=== PATIENT | male | born 1940 | race Caucasian/White ===

== ENCOUNTER → 2017-02-28 | Outpatient (CLI) | payer MEDICARE, BC | END | disposition home or self-care (01) | LOC: PCVCIMAG 09:18 | PROVIDERS: ATTEND Internal Medicine Cardiovascular Disease | DX: I65.23 Occlusion and stenosis of bilateral carotid arteries (principal); I25.10 Atherosclerotic heart disease of native coronary artery without angina pectoris; I45.10 Unspecified right bundle-branch block; R55 Syncope and collapse; E78.5 Hyperlipidemia, unspecified; I10 Essential (primary) hypertension; Z95.1 Presence of aortocoronary bypass graft | CPT/HCPCS: 80061; 93005; 93306; 93880; G0463 ==

== ENCOUNTER → 2017-08-26 | Outpatient (CLI) | payer MEDICARE, BC | END | disposition home or self-care (01) | LOC: PCVCCLINIC 12:00 | PROVIDERS: ATTEND Internal Medicine Cardiovascular Disease | DX: I25.10 Atherosclerotic heart disease of native coronary artery without angina pectoris (principal); I10 Essential (primary) hypertension; I65.29 Occlusion and stenosis of unspecified carotid artery; E11.42 Type 2 diabetes mellitus with diabetic polyneuropathy; E78.00 Pure hypercholesterolemia, unspecified; R94.31 Abnormal electrocardiogram [ECG] [EKG]; I45.10 Unspecified right bundle-branch block; I44.0 Atrioventricular block, first degree; Z95.1 Presence of aortocoronary bypass graft; Z87.891 Personal history of nicotine dependence; Z79.899 Other long term (current) drug therapy; Z79.84 Long term (current) use of oral hypoglycemic drugs | CPT/HCPCS: 80061; 93005; G0463 ==

== ENCOUNTER → 2018-03-04 | Outpatient (CLI) | payer MEDICARE, BC | END | disposition home or self-care (01) | LOC: PCVCIMAG 16:00 | DX: I08.3 Combined rheumatic disorders of mitral, aortic and tricuspid valves (principal); I25.10 Atherosclerotic heart disease of native coronary artery without angina pectoris; I45.2 Bifascicular block; M48.061 Spinal stenosis, lumbar region without neurogenic claudication; E11.42 Type 2 diabetes mellitus with diabetic polyneuropathy; I10 Essential (primary) hypertension; E78.00 Pure hypercholesterolemia, unspecified; R53.83 Other fatigue; R94.31 Abnormal electrocardiogram [ECG] [EKG]; R06.00 Dyspnea, unspecified; Z95.1 Presence of aortocoronary bypass graft; Z87.891 Personal history of nicotine dependence | CPT/HCPCS: 80061; 93005; 93306; G0463 ==

== ENCOUNTER → 2018-09-08 | Outpatient (CLI) | payer MEDICARE, BC ==
[~2018-09-08] MED LIST: REGADENOSON 0.4 MG/5 ML DISP.SYRIN. IV ONE
--- NOTE | 2018-09-08 13:49 | PCVCIMAG ---
APPROVED REPORT Imaging Protocol: Rest Tc-99m/Stress Tc-99m 1 day Study performed: 09/08/2018 10:18:07 Indication: Dyspnea, CAD, RBBB, Fatigue, Cardiomyopathy Patient Location: Out-Patient Stress Nurse: Oly Christian RN CO Tech:Porfirio FigueroaKARRIE Ht: 6 ft 0 in Wt: 260 lbs BSA: 2.38 m2 HR: 64 bpm BP: 132/60 mmHg BMI: 35.2 Rhythm: Sinus Rhythm, Bifascicular Block Medical History Medical History: Age, Hyperlipidemia, HTN, CAD, DM, Former Smoker Medications: ASA, Proscar, Gabapentin, Glipizide, Lisinopril, Metoprolol, Omeprazole, Actos, Crestor Allergies: No known drug allergies Cardiac Risk Factors: CABG Exercise History: Sedentary Physical Disabilities: Knees, Hips Meds Held (24 hrs): Metoprolol Resting Data Rest SPECT myocardial perfusion imaging was performed in supine position 45 minutes following the intravenous injection of 10.8 mCi of Tc-99m Sestamibi. Time of rest injection: 1000 Date: 09/08/2018 Administration Route: IV Administration Site: Right AC Pharmacologic Stress Pharmacologic stress test was performed by injecting Regadenoson 0.4 mg IV push over 10-15 seconds immediately followed by the intravenous injection of 33.8 mCi of Tc-99m Sestamibi. Time of stress injection: 1115 Date: 09/08/2018 Administration Route: IV Administration Site: Right AC Gated Stress SPECT was performed 45 minutes after stress injection. The images were gated to evaluate regional wall motion and calculate left ventricular ejection fraction. Comments Prior Study 09/2016 Negative for ischemia Stress Test Details Stress Test: Pharmacologic stress testing performed using 0.4 mg of regadenoson per 5 mL given IV over 10 seconds. Reason for pharmacologic stress test: Hips, Knee issues. HRMax Heart Rate (APMHR): 142 bpm Resting HR: 64 bpmTarget HR (85% APMHR): 120 bpm Max HR Achieved: 70 bpm % of APMHR: 49 Recovery HR: 63 bpm BP Resting BP: 132/60 mmHg Recovery BP: 136/64 mmHg ECG Resting ECG: Sinus Rhythm, Bifascicular Block Stress ECG: Sinus Rhythm, Bifascicular Block Arrhythmia: None Recovery ECG: Sinus Rhythm, Bifascicular Block Clinical Reason for Termination: Completed protocol Stress Symptoms: None Exercise duration: min 55 sec Symptoms resolved during recovery. Stress ECG Conclusion ECG: Non-ischemic Clinical: Non-ischemic Study Quality Study: Good Artifact: Mild Diaphragmatic artifact Study Data Post stress, the left ventricular ejection was 61%.. SSS: 3 SRS: 5 SDS: 1 TID = 1.11. Perfusion No evidence of stress induced ischemia or prior myocardial infarction. Wall Motion Normal left ventricular function with no regional wall motion abnormalities. Nuclear Conclusion No evidence of stress induced ischemia or prior myocardial infarction. Normal left ventricular function with no regional wall motion abnormalities. Post stress, the left ventricular ejection was 61%. No change since prior study dated September 2016. Interpreted by: Jose Antonio Tenorio MD Electronically Approved: 09/08/2018 12:54:09 <Conclusion> ECG: Non-ischemic Clinical: Non-ischemic
== END | disposition home or self-care (01) ==
LOC: PCVCIMAG 09:25
PROVIDERS: ATTEND Internal Medicine Cardiovascular Disease
DX: I25.10 Atherosclerotic heart disease of native coronary artery without angina pectoris (principal); I45.2 Bifascicular block; I10 Essential (primary) hypertension; E78.00 Pure hypercholesterolemia, unspecified; I65.23 Occlusion and stenosis of bilateral carotid arteries; E11.42 Type 2 diabetes mellitus with diabetic polyneuropathy; I42.9 Cardiomyopathy, unspecified; R06.02 Shortness of breath; I45.10 Unspecified right bundle-branch block; R53.83 Other fatigue; E78.5 Hyperlipidemia, unspecified; Z95.1 Presence of aortocoronary bypass graft; Z87.891 Personal history of nicotine dependence; Z79.899 Other long term (current) drug therapy
CPT/HCPCS: 78452; 93005; 93017; A9500; G0463; J2785

== ENCOUNTER → 2019-03-18 | Outpatient (CLI) | payer MEDICARE, BC ==
--- NOTE | 2019-03-18 16:58 | PCVCIMAG ---
APPROVED REPORT Study performed: 03/18/2019 14:25:24 EXAM: Comprehensive 2D, Doppler, and color-flow Echocardiogram Patient Location: Echo lab Status: routine BSA: 2.42 HR: 62 bpmBP: 144/72 mmHg Rhythm: NSR, RBBB Other Information Study Quality: Technically Difficult Technically limited study due to body habitus. Risk Factors: Cardiac Risk Factors: HTN, Hyperlipidemia Indications CAD Cardiomyopathy S/P CABG (2003) Dyspnea on Exertion 2D Dimensions IVSd: 13.15 (7-11mm)LVOT Diam: 21.00 (18-24mm) LVDd: 50.08 mm PWd: 12.58 (7-11mm)Ascending Ao: 34.95 (22-36mm) LVDs: 37.91 (25-40mm) Left Atrium: 53.97 (27-40mm) Aortic Root: 36.49 mm LV Single Plane 4CH: 45.86 % LV Single Plane 2CH: 52.41 % Biplane EF: 49.9 % Volumes Left Atrial Volume (Systole) Single Plane 4CH: 91.65 mLSingle Plane 2CH: 77.26 mL LA ESV Index: 35.00 mL/m2 Aortic Valve AoV Peak Ian.: 1.51 m/s AO Peak Gr.: 9.08 mmHgLVOT Max P.89 mmHg LVOT Max V: 0.85 m/s DAVID Vmax: 1.92 cm2 Mitral Valve E/A Ratio: 0.7 MV Decel. Time: 218.24 ms MV E Max Ian.: 0.72 m/s MV A Ian.: 0.99 m/s IVRT: 65.74 ms TDI E/Lateral E': 8.00E/Medial E': 10.29 Medial E' Ian.: 0.07 m/s Lateral E' Ian.: 0.09 m/s Pulmonary Valve PV Peak Ian.: 1.05 m/sPV Peak Gr.: 4.38 mmHg Pulmonary Vein P Vein S: 0.63 m/sP Vein A: 0.22 m/s P Vein D: 0.57 m/sP Vein A Dur.: 121.1 msec P Vein S/D Ratio: 1.11 Tricuspid Valve TR Peak Ian.: 2.56 m/s TR Peak Gr.: 26.12 mmHg Left Ventricle Left ventricle is mildly dilated. There is normal LV segmental wall motion. Mild concentric left ventricular hypertrophy. Left ventricular systolic function is mildly decreased. LVEF is 45-50%. Mild diastolic dysfunction is present (impaired relaxation pattern). Right Ventricle The right ventricle is normal size. The right ventricular systolic function is normal. Atria Left atrium is mildly dilated. Right atrium is dilated. Aortic Valve The aortic valve is normal in structure. Trace to mild aortic regurgitation. There is no aortic valvular stenosis. Mitral Valve The mitral valve is normal in structure. Mild to moderate mitral regurgitation. No evidence of mitral valve stenosis. Tricuspid Valve The tricuspid valve is normal in structure. Mild tricuspid regurgitation. Unable to assess PA pressure. Pulmonic Valve The pulmonary valve is normal in structure. Trace pulmonic regurgitation. Great Vessels The aortic root is normal in size. IVC is not visualized. Pericardium There is no pericardial effusion. <Conclusion> Left ventricle is mildly dilated. Mild concentric left ventricular hypertrophy. Left ventricular systolic function is mildly decreased. LVEF is 45-50%. Mild diastolic dysfunction is present (impaired relaxation pattern). Left atrium is mildly dilated. Right atrium is dilated. Trace to mild aortic regurgitation. Mild to moderate mitral regurgitation. Mild tricuspid regurgitation. Unable to assess PA pressure. The aortic root is normal in size. There is no pericardial effusion.
== END | disposition home or self-care (01) ==
LOC: PCVCIMAG 14:01
PROVIDERS: ATTEND Internal Medicine Cardiovascular Disease
DX: I08.3 Combined rheumatic disorders of mitral, aortic and tricuspid valves (principal); I25.10 Atherosclerotic heart disease of native coronary artery without angina pectoris; E78.2 Mixed hyperlipidemia; I11.9 Hypertensive heart disease without heart failure; E11.42 Type 2 diabetes mellitus with diabetic polyneuropathy; Z95.1 Presence of aortocoronary bypass graft; Z87.891 Personal history of nicotine dependence
CPT/HCPCS: 36415; 80061; 93005; 93306; G0463

== ENCOUNTER → 2019-10-06 | Outpatient (CLI) | payer MEDICARE, BC | END | disposition home or self-care (01) | LOC: PCVCCLINIC 11:00 | PROVIDERS: ATTEND Internal Medicine Cardiovascular Disease | DX: I25.10 Atherosclerotic heart disease of native coronary artery without angina pectoris (principal); E78.2 Mixed hyperlipidemia; I42.9 Cardiomyopathy, unspecified; E11.9 Type 2 diabetes mellitus without complications; I10 Essential (primary) hypertension; Z95.1 Presence of aortocoronary bypass graft; Z79.899 Other long term (current) drug therapy; Z87.891 Personal history of nicotine dependence; Z72.89 Other problems related to lifestyle | CPT/HCPCS: 36415; 80061; 93005; G0463 ==